=== PATIENT | female | born 1990 | race Caucasian/White ===

== ENCOUNTER 2021-11-07 05:30 | Day surgery (SDC) | payer OTHER ==
[~2021-11-07 05:30] MED LIST: Sodium Chloride 0.9% 10 ML Syringe FLUSH SCH
[2021-11-07] MEDS ORDERED: fentaNYL 100 MCG/2 ML SDV IV ONE ×3 (05:31→06:30)
[2021-11-07] MEDS ORDERED: Midazolam 1 MG/ML 2 ML SDV IV ONE ×3 (05:31→06:31)
[2021-11-07] MEDS ORDERED: fentaNYL 100 MCG/2 ML SDV ONE (05:54)
[2021-11-07] MEDS ORDERED: Midazolam 1 MG/ML 2 ML SDV ONE (05:54)
[2021-11-07] MEDS ORDERED: Dextrose 5%-0.45% NaCl 1,000 ML IV SCH (06:00)
[2021-11-07] MEDS ORDERED: Sodium Chloride 0.9% 10 ML Syringe FLUSH PRN (06:00)
== END 2021-11-07 08:50 | disposition home or self-care (01) ==
LOC: DL.ENDO 05:30
PROVIDERS: ATTEND Internal Medicine Gastroenterology
DX: K31.89 Other diseases of stomach and duodenum (principal); F41.1 Generalized anxiety disorder; F32.A Depression, unspecified; E66.09 Other obesity due to excess calories; K30 Functional dyspepsia; D50.9 Iron deficiency anemia, unspecified; Z91.048 Other nonmedicinal substance allergy status; Z98.890 Other specified postprocedural states
CPT/HCPCS: 43239; 87077; J2250; J3010; J7042